=== PATIENT | female | born 1945 | race Caucasian/White ===

== ENCOUNTER 2017-06-15 00:01 | Outpatient (POV) | END 2017-06-15 17:00 | LOC: OUTPT 00:01 | PROVIDERS: ATTEND Otolaryngology | DX: H91.90 Unspecified hearing loss, unspecified ear (principal) ==

== ENCOUNTER 2019-07-05 11:48 | Observation (INO) ==
[2019-07-05] MEDS ORDERED: PROTONIX PO STA (12:16)
--- NOTE | 2019-07-05 12:23 | ED.PDOC ---
General ED Provider: Dr. ILYA SHANNON MD Chief Complaint: Chest Pain Stated Complaint: mild anterior chest pain pressure this morning for one hour, gone now, nonrad, no hx CT, +hx gerd, last stress test 2 years ago, hx htn, pt took aspirin Time Seen by Physician: 12:20 Mode of Arrival: Wheelchair Information Source: Patient Primary Care Provider: CHRISTIE VAZQUEZ Nursing and Triage Documentation Reviewed and Agree: Yes Does patient meet sepsis criteria?: No System Inflammatory Response Syndrome: Not Applicable Sepsis Protocol: For patient's 13 years and over: Temp is 96.8 and below OR 101 and greater Pulse >90 BPM Resp >20/minute Acutely Altered Mental Status Are patient's symptoms suggestive of a new infection, such as: -Pneumonia -Skin, Soft Tissue -Endocarditis -UTI -Bone, Joint Infection -Implantable Device -Acute Abdominal Infection -Wound Infection -Meningitis -Blood Stream Catheter Infection -Unknown Cardiovascular Complaint Exam Chest Pain Complaint/Exam Duration: one hour Symptoms Are: Resolved Timing: Constant Initial Severity: Mild Current Severity: None Location: Reports Midsternal Pain Radiates: Reports None Character: Reports Pressure Aggravating: Reports None AMI/ACS Risk Factors: Reports Hypertension Review of Systems Review Of Systems Constitutional: Denies Fever Eyes: Denies Vision change Ears, Nose, Mouth, Throat: Denies Throat pain Respiratory: Denies Cough Cardiac: Reports Chest pain GI: Denies Abdominal pain Musculoskeletal: Denies Back pain Skin: Reports No symptoms Neurological: Reports No symptoms All Other Systems: Other [facility] Medical History (Updated 07/05/19 @ 14:10 by RINA RUSH RN) Glaucoma History of surgical procedure on eye proper using laser Hypercholesteremia (Acute) Hypertension Family History (Updated 07/05/19 @ 14:11 by RINA RUSH RN) FATHER Myocardial infarct Social History (Updated 07/05/19 @ 14:10 by RINA RUSH RN) Smoking and tobacco status: Never smoker Alcohol intake: never Physical Exam Physical Exam Appearance: Reports Well-appearing Ill-appearing: None Pain Distress: None Eyes: Reports EOMI ENT: Reports Oropharynx normal Neck: Supple Respiratory: Reports Airway patent, Breath sounds clear and Breath sounds equal Cardiovascular: Reports RRR GI/: Reports Soft and Nontender Musculoskeletal: Reports No edema Skin: Reports Warm and Dry Neurological: Reports Sensation intact Psychiatric: Reports Affect appropriate Interpretation Radiology Interpretation Radiology Interpretation By: Radiologist Radiology Results: No acute changes Exam Interpreted: CXR EKG Interpretation Time of EKG #1: 13:22 Rate: Normal Rhythm: Sinus Interpretation: no stemi Re-Evaluation Re-Evaluation Time of Re-Evaluation: 13:23 Status: Improved Vital Signs Stable: Yes Appearance: NAD Lungs: Clear Skin: Warm and Dry Neuro: Alert and Oriented X3 CV: RRR Additional Comments: disposition and admit d/w Taylor, when the family member/employee asked to admit to Dr Caldwell, d/w Dr Caldwell in the ED Critical Care Note Critical Care Note Total Time (mins): 0 Course Course Hematology/Chemistry: 07/05/19 12:32 07/05/19 12:32 Orders, Labs, Meds: Lab Review 07/05/19 07/05/19 07/05/19 12:32 12:32 12:32 WBC 5.90 RBC 3.85 L Hgb 11.5 L Hct 34.9 L MCV 90.6 MCH 29.9 MCHC 33.0 RDW Coeff of Yoselyn 12.7 Plt Count 248 Immature Gran % (Auto) 0.2 Neut % (Auto) 44.6 Lymph % (Auto) 36.8 [place] % (Auto) 12.9 H Eos % (Auto) 4.7 Baso % (Auto) 0.8 Immature Gran # (Auto) 0.0 Neut # (Auto) 2.6 Lymph # (Auto) 2.2 [place] # (Auto) 0.8 Eos # (Auto) 0.3 Baso # (Auto) 0.1 Sodium 137.8 Potassium 4.70 Chloride 100.4 Carbon Dioxide 31.1 H Anion Gap 11.00 BUN 15.8 Creatinine 0.91 Estimated GFR (MDRD) 61.00 BUN/Creatinine Ratio 17.36 Glucose 101.4 Calcium 9.55 Total Bilirubin 0.41 AST 32.9 ALT 16.1 Alkaline Phosphatase 82.7 Total Creatine Kinase 98.8 Troponin I < 0.012 Total Protein 7.01 Albumin 4.02 Globulin 2.99 Albumin/Globulin Ratio 1.34 Triglycerides 130.7 Cholesterol 193.9 LDL Cholesterol, Calc 110 VLDL Cholesterol 26 HDL Cholesterol 58.0 Cholesterol/HDL Ratio 3.3 L TSH 2.170 Free T4 07/05/19 12:32 WBC RBC Hgb Hct MCV MCH MCHC RDW Coeff of Yoselyn Plt Count Immature Gran % (Auto) Neut % (Auto) Lymph % (Auto) [place] % (Auto) Eos % (Auto) Baso % (Auto) Immature Gran # (Auto) Neut # (Auto) Lymph # (Auto) [place] # (Auto) Eos # (Auto) Baso # (Auto) Sodium Potassium Chloride Carbon Dioxide Anion Gap BUN Creatinine Estimated GFR (MDRD) BUN/Creatinine Ratio Glucose Calcium Total Bilirubin AST ALT Alkaline Phosphatase Total Creatine Kinase Troponin I Total Protein Albumin Globulin Albumin/Globulin Ratio Triglycerides Cholesterol LDL Cholesterol, Calc VLDL Cholesterol HDL Cholesterol Cholesterol/HDL Ratio TSH Free T4 1.16 Orders Category Date Time Status EKG-(ED ONLY) Stat CARDIO 07/05/19 12:16 Completed CBC W/ AUTO DIFF Stat LAB 07/05/19 12:32 Completed COMPREHENSIVE METABOLIC PANEL Stat LAB 07/05/19 12:32 Completed TROPONIN I Stat LAB 07/05/19 12:32 Completed Pantoprazole Sodium [Protonix] MEDS 07/05/19 12:16 Discontinued 40 mg PO ONCE STA CHEST, 1V AP ONLY Stat RADS 07/05/19 12:19 Completed Medications Generic Name Dose Route Start Last Admin Trade Name Freq PRN Reason Stop Dose Admin Acetaminophen 650 mg 07/05/19 13:25 Tylenol PO Q4H PRN Mild Pain Aspirin 81 mg 07/06/19 08:00 Aspirin Ec PO DAILYWM [facility] Atropine Sulfate 0.5 mg 07/05/19 14:36 Atropine Sulfate Pfs IVP ONCE PRN Symptomatic Bradycardia Cholecalciferol 1,000 unit 07/06/19 09:00 Vitamin D PO EVERY OTHER DAY [facility] Hydroxyzine HCl 25 mg 07/05/19 14:36 Vistaril Inj IM Q4H PRN Nausea/Vomiting/Restlessness Loratadine 10 mg 07/06/19 09:00 Claritin PO DAILY [facility] Losartan Potassium 25 mg 07/06/19 09:00 Cozaar PO EVERY OTHER DAY [facility] Nitroglycerin 0.4 mg 07/05/19 14:36 Nitrostat SL Q5MIN X 3 DOSES PRN Chest Pain Non-Formulary Medication 1 each 07/06/19 09:00 Famotidine-Ca Carb-Mag Hydrox [Tums Dual Action (Famotidine)] PO DAILY [facility] Non-Formulary Medication 1 drop 07/06/19 09:00 Brimonidine-Timolol [Combigan] RIGHTEYE DAILY ANY Pantoprazole Sodium 40 mg 07/05/19 17:00 Protonix PO BIDAC ANY Pravastatin Sodium 40 mg 07/06/19 09:00 Pravachol PO EVERY OTHER DAY ANY Sodium Chloride 1 syr 07/05/19 21:00 Saline Flush IVF Q8HR ANY Discontinued Medications Generic Name Dose Route Start Last Admin Trade Name Freq PRN Reason Stop Dose Admin Pantoprazole Sodium 40 mg 07/05/19 12:16 07/05/19 12:48 Protonix PO 07/05/19 12:17 40 mg ONCE STA Administration Vital Signs: Temp Pulse Resp BP Pulse Ox 07/05/19 11:49 97.8 F 64 20 172/103 H 100 ANGELA Risk Score ANGELA Risk Score: Risk Score Odds of by 30D 0 0.1 (0.1-0.2) 1 0.3 (0.2-0.3) 2 0.4 (0.3-0.5) 3 0.7 (0.6-0.9) 4 1.2 (1.0-1.5) 5 2.2 (1.9-2.6) 6 3.0 (2.5-3.6) 7 4.8 (3.8-6.1) Discharge Plan Discharge Patient Disposition: PLACED OBSERVATION Discharge Problem: Chest pain ED Provider: ILYA SHANNON Condition: Stable Discharge Date/Time: 07/05/19 13:55
[2019-07-05 12:38] LABS: HEMATOCRIT 34.9 % (37.0-47.0)
--- NOTE | 2019-07-05 13:04 | DI ---
EXAM: Chest one view HISTORY: Chest pain COMPARISON: 05/25/2013 TECHNIQUE: Single view of the chest was performed FINDINGS: The lungs are clear. There is no pleural effusion or pneumothorax. The heart is normal i n size. The mediastinal contour is normal. There are no acute abnormalities of the bones. IMPRESSION: No acute cardiopulmonary process.
[2019-07-05] MEDS ORDERED: TYLENOL PO PRN (13:25)
[2019-07-05 14:16] VITALS: BMI 29.4
[2019-07-05] MEDS ORDERED: ATROPINE SULFATE PFS IVP PRN (14:36)
[2019-07-05] MEDS ORDERED: NITROSTAT SL PRN (14:36)
[2019-07-05] MEDS ORDERED: VISTARIL INJ IM PRN (14:36)
[2019-07-05] MEDS: PROTONIX PO SCH (20:50)
[2019-07-06 03:59] LABS: HEMATOCRIT 37.5 % (37.0-47.0)
[2019-07-06] MEDS: PROTONIX PO SCH ×2 (05:43→05:45)
[2019-07-06] MEDS ORDERED: ASPIRIN EC PO SCH (08:00)
--- NOTE | 2019-07-06 08:48 | PCM.PROG ---
Attending Provider: ATTENDING PROVIDER: Dr. RINA CALDWELL This patient is seen with Jemma Win, Nurse Practitioner. DATE OF SERVICE: 07/06/19 SUBJECTIVE: This 73 year old /WHITE F was hospitalized 07/05/19. The patient is resting comfortably in bed. She has been up and about in the room. She is eating good. She denies any chest pain since admission. She reports that she normally as patient of Dr. Portillo. She last saw him at the beginning of June and he changed her acid reflux medication from Aciphex to Pepcid. She initially though the chest pressure maybe related to this however she took a TUMS and her pain was unrelieved. She then chewed a 325mg aspirin and had relief. REVIEW OF SYSTEMS: CONSTITUTIONAL: No night sweats. No fatigue, malaise, lethargy. No fever or chills. HEENT: Eyes: No visual changes. No eye pain. No eye discharge. ENT: No runny nose. No epistaxis. No sinus pain. No odynophagia. No congestion. RESPIRATORY: No cough, no congestion. No hemoptysis. No shortness of breath. CARDIOVASCULAR: No angina symptoms. No CHF symptoms. No atypical chest pain for CAD. No palpitations. No orthopnea.. GASTROINTESTINAL: No abdominal pain. No nausea or vomiting. No diarrhea or constipation. No hematemesis. No hematochezia. GENITOURINARY: No urgency. No frequency. No dysuria. No hematuria. No obstructive symptoms. No discharge. No pain. No significant abnormal bleeding. MUSCULOSKELETAL: No musculoskeletal pain; no joint swelling. NEUROLOGICAL: Awake, alert, oriented to time, place and person. No headache. No neck pain. No syncope. No seizures. No dizziness. PSYCHIATRIC: Not anxious. No depression. No suicidal thoughts. No homicidal thoughts. SKIN: No rash. No lesions. No wounds. ENDOCRINE: No unexplained weight loss. No weight gain. HEMATOLOGIC/LYMPHATIC: No anemia. No purpura. No petechiae. No prolonged or excessive bleeding. No palpable lymph nodes. PHYSICAL EXAMINATION: GENERAL: The patient is awake, alert and oriented, sitting in bed in no distress. VITAL SIGNS: Temperature 97.7 F, Pulse 62, Respiratory Rate 18, BP 159/78, Pulse Ox 99% HEENT: Head normocephalic, atraumatic. Eyes: Extraocular muscles are intact. Pupils are equal, round and reactive to light and accommodation. Ears: No lesi ons. Nose appeared normal. Throat: No exudate or erythema. NECK: Supple. No JVD, no carotid bruit. No lymphadenopathy or thyromegaly. LUNGS: Diminished breath sounds. Clear to auscultation. Percussion note normal. Chest symmetrical. HEART: S1, S2, no S3. No murmurs. No cyanosis or clubbing. No ascites. Pulses: Dorsalis pedis and posterior tibial pulses +1 to +2 both sides. ABDOMEN: Soft. Non-tender. Bowel sounds active. No CVA tenderness. No mass felt. EXTREMITIES: No edema. Full range of motion of all extremities, equal. NEUROLOGIC: No focal deficit. Cranial nerves II through XII are grossly intact. No headache, no double vision or headache. SKIN: Not dry. Intact. Turgor-normal. LYMPHATIC: No palpable lymph nodes/no lymphedema. MUSCULOSKELETAL: Normal joints with no swelling. Muscle tone is normal. LAB REVIEW: 07/06/19 03:44 07/06/19 03:44 07/06/19 03:44: Sodium 141.1, Potassium 3.96, Chloride 103.9, Carbon Dioxide 29.7, Anion Gap 11.46, BUN 14.7, Creatinine 0.91, Estimated GFR (MDRD) 61.00, BUN/Creatinine Ratio 16.15, Glucose 99.7, Calcium 9.49, Total Bilirubin 0.66, AST 32.2, ALT 17.7, Alkaline Phosphatase 78.4, Total Protein 7.36, Albumin 4.17, Globulin 3.19, Albumin/Globulin Ratio 1.30 07/06/19 03:44: WBC 6.85, RBC 4.10 L, Hgb 12.4, Hct 37.5, MCV 91.5, MCH 30.2, MCHC 33.1, RDW Coeff of Yoselyn 12.9, Plt Count 253, Immature Gran % (Auto) 0.1, Neut % (Auto) 45.8, Lymph % (Auto) 35.0, [place] % (Auto) 14.3 H, Eos % (Auto) 3.9, Baso % (Auto) 0.9, Immature Gran # (Auto) 0.0, Neut # (Auto) 3.1, Lymph # (Auto) 2.4, [place] # (Auto) 1.0, Eos # (Auto) 0.3, Baso # (Auto) 0.1 07/06/19 03:44: Troponin I < 0.012 07/05/19 21:00: Urine Color Yellow, Urine Clarity Clear, Urine pH 7.0, Ur Specific [place] 1.015, Urine Protein Negative, Urine Glucose (UA) Negative, Urine Ketones Negative, Urine Blood Negative, Urine Nitrite Negative, Urine Bilirubin Negative, Urine Urobilinogen 0.2, Ur Leukocyte Esterase Negative 07/05/19 20:37: Total Creatine Kinase 85.5, Troponin I < 0.012 07/05/19 12:32: Free T4 1.16 07/05/19 12:32: Total Creatine Kinase 98.8, Triglycerides 130.7, Cholesterol 193.9, LDL Cholesterol, Calc 110, VLDL Cholesterol 26, HDL Cholesterol 58.0, Cholesterol/HDL Ratio 3.3 L, TSH 2.170 07/05/19 12:32: Sodium 137.8, Potassium 4.70, Chloride 100.4, Carbon Dioxide 31.1 H, Anion Gap 11.00, BUN 15.8, Creatinine 0.91, Estimated GFR (MDRD) 61.00, BUN/Creatinine Ratio 17.36, Glucose 101.4, Calcium 9.55, Total Bilirubin 0.41, AST 32.9, ALT 16.1, Alkaline Phosphatase 82.7, Troponin I < 0.012, Total Protein 7.01, Albumin 4.02, Globulin 2.99, Albumin/Globulin Ratio 1.34 07/05/19 12:32: WBC 5.90, RBC 3.85 L, Hgb 11.5 L, Hct 34.9 L, MCV 90.6, MCH 29.9, MCHC 33.0, RDW Coeff of Yoselyn 12.7, Plt Count 248, Immature Gran % (Auto) 0.2, Neut % (Auto) 44.6, Lymph % (Auto) 36.8, [place] % (Auto) 12.9 H, Eos % (Auto) 4.7, Baso % (Auto) 0.8, Immature Gran # (Auto) 0.0, Neut # (Auto) 2.6, Lymph # (Auto) 2.2, [place] # (Auto) 0.8, Eos # (Auto) 0.3, Baso # (Auto) 0.1 ASSESSMENT: Please see below. 1. Atypical chest pain PLAN: 1.Echo and a stress echo 2.Continue Routine Telemetry 3.Continue home medications. Plan and coordination of the patient's care discussed in the presence of Multiple Spindle Router Operator and nurse. SCRIBED BY: Susana RICCIist scribed while in presence of service performed by Dr. Caldwell/Jemma Win APRN on 07/06/19 (6000)
[2019-07-06] MEDS ORDERED: CLARITIN PO SCH (09:00)
[2019-07-06] MEDS ORDERED: PRAVACHOL PO SCH (09:00)
[2019-07-06] MEDS ORDERED: NON-FORMULARY MEDICATION (Brimonidine-Timolol [Combigan] 1 DROP) RIGHTEYE SCH (09:00)
[2019-07-06] MEDS ORDERED: NON-FORMULARY MEDICATION (Pravastatin [Pravachol] 40 MG) PO SCH (09:00)
[2019-07-06] MEDS ORDERED: CETIRIZINE 10 MG PO SCH (09:00)
[2019-07-06] MEDS ORDERED: VITAMIN D PO SCH (09:00)
[2019-07-06] MEDS ORDERED: NON-FORMULARY MEDICATION (Cholecalciferol (Vitamin D3) [Vitamin D3] 1,000 UNIT) PO SCH (09:00)
[2019-07-06] MEDS ORDERED: LOSARTAN 25 MG PO SCH (09:00)
[2019-07-06] MEDS ORDERED: COZAAR PO SCH (09:00)
[2019-07-06 09:54] VITALS: BP 133/85; TEMP 98.1
--- NOTE | 2019-07-06 14:06 | DS ---
DATE OF SERVICE: 07/06/19 FINAL DIAGNOSIS: 1. CHEST PAIN, ATYPICAL FOR CORONARY INSUFFICIENCY. 2. GASTROESOPHAGEAL REFLUX DISEASE LIKELY ESOPHAGEAL SPASM. 3. DYSLIPIDEMIA. 4. HYPERTENSION. 5. ANEMIA. 6. HISTORY OF GLAUCOMA. DISCHARGE INSTRUCTIONS: Advised to continue the same medications as before. The patient has some Acifex left at home. Advised to restart one q.a.m. along with 20 mg Pepcid at 4 or 5 o'clock before supper. HOSPITAL COURSE: 73-year-old white female hospitalized with chest tightness in the center of the chest around lower sternal area of a couple hours duration before she came to the emergency room. The patient's condition improved. She was given Protonix 40 mg twice a day while she was in the hospital. The patient's EKG showed sinus rhythm, left bundle branch block type of pattern which was unchanged times three. Cardiac markers were negative. Stress test METS level 5 with no evidence of ischemia by ST-T wave. The patient's blood pressure response was appropriate. Resting and postexercise echo was normal indicating normal LV contractility. The patient's lipid profile is acceptable. The patient was advised to continue the same medications as before. According to her she had done good on Aciphex but because of the side effects on PPI, she was recently switched to Pepcid. She was advised to continue Aciphex and she has it at home for the timebeing until she is seen by Dr. Lundberg. CONDITION AT TIME DISCHARGE: Stable. TIME SPENT: More than 60 minutes. MTDD
--- NOTE | 2019-07-06 14:08 | PN ---
CODING FOR BILLING 07/05/19 ADMISSION DAY LEVEL 5 07/06/19 INTERMEDIATE 07/07/19 DISCHARGE MTDD
--- NOTE | 2019-07-09 11:05 | STRESSECHO ---
Date of Test: 07/06/19 Ordering Physician: DR. RINA CARRANZA Occupation: RETIRED Reason for Exam: CHEST PAIN, HYPERTENSION Smoking History: NONE Height: 62" Weight: 164 LBS Current Medications: LOSARTAN, VITAMIN D3, PRAVACHOL, FLONASE Resting EKG: SINUS RHYTHM/ INCOMPLETE RIGHT BUNDLE BRANCH BLOCK Target Heart Rate: 124/147 S-T SEGMENT STAGE MPH/GRADE HEART RATE BPM BLOOD PRESSURE MMHG RHYTHM +/- ELEVATION DEPRESSION SYMPTOMS AT REST 80 BPM 142/80 MMHG SR X NONE 1 1.7/10% 147 BPM 168/92 MMHG SR X NONE 2 2.5/12% 3 3.4/14% 4 4.2/16% 5 5.0/18% Immediately After 160 BPM 178/80 MMHG SR X NONE Minutes Post Exercise 5:00 80 BPM 132/80 MMHG SR X NONE Minutes Post Exercise DURATION OF EXERCISE: 3:36 MAXIMUM HEART RATE REACHED: 160 BPM REASON FOR TERMINATION: FATIGUE 99% OXYGEN SATURATION WITH EXERCISE ON ROOM AIR METS 6.0 INTERPRETATION: 1. NO EVIDENCE OF ISCHEMIA BY ST-T WAVE 2. NO CHEST PAIN OR CHEST DISCOMFORT 3. NO ARRHYTHMIAS 4. BLOOD PRESSURE RESPONSE: BORDERLINE HYPERTENSION WITH EXERCISE NORMAL LEFT VENTRICULAR CONTRACTILITY--RESTING AND POST EXERCISE MTDD
--- NOTE | 2019-07-09 11:08 | ECHOSTRESS ---
Date of Exam: 07/06/19 Ordering Physician: DR. RINA CARRANZA/CHRISTIE VAZQUEZ Reason for Echo: CHEST PAIN, HYPERTENSION, STRESS TEST M-Mode Normal Adult Results LV Dimensions Normal Adult Results AoV Opening excursions >1.6 LVEDD-base- 3.5-5.8 Ao root dimensions 2.0-3.7 LVESD-base- 3.1-4.6 L. Atrium dimensions 1.9-3.8 Post. Wall thickness 0.8-1.1 IV septum (thickness) 0.7-1.2 Post. Wall excursion 0.72-1.3 Septal motion Systolic motion R. Ventricular cavity 1.5-2.0 LVEF 60% Paradoxical septal wall motion 2-D: NORMAL LEFT VENTRICULAR CONTRACTILITY--RESTING AND POST EXERCISE M-MODE: MV: AV: TV: PV: CHAMBER SIZE: WALL MOTION: NORMAL LEFT VENTRICULAR CONTRACTILITY--RESTING AND POST EXERCISE PERICARDIUM: INTERPRETATION: 1. NORMAL LEFT VENTRICULAR CONTRACTILITY--RESTING AND POST EXERCISE MTDD
--- NOTE | 2019-07-09 11:11 | ECHO2D ---
Date of Exam: 07/06/19 Ordering Physician: DR. RINA CARRANZA/ CHRISTIE VAZQUEZ Room #: 119 Reason for Echo: CHEST PAIN M-Mode Normal Adult Results LV Dimensions Normal Adult Results AoV Opening excursions >1.6 >1.6 LVEDD-base- 3.5-5.8 4.2 Ao root dimensions 2.0-3.7 2.9 LVESD-base- 3.1-4.6 L. Atrium dimensions 1.9-3.8 3.4 Post. Wall thickness 0.8-1.1 1.0 IV septum (thickness) 0.7-1.2 1.1 Post. Wall excursion 0.72-1.3 NORMAL Septal motion NORMAL Systolic motion R. Ventricular cavity 1.5-2.0 NORMAL LVEF 60% 62% Paradoxical septal wall motion NORMAL 2-D : 2-D M Mode Echocardiogram was performed using apical four chamber and left parasternal long and short axis views. Mitral, tricuspid and aortic valves appear to be normal. Contractility of the left ventricle seems to be normal, so is the cavity size. Left atrial cavity size and aortic root appear to be normal. There is no pericardial effusion. There is no thrombus noted in the left ventricle or left atrial cavity. No mitral valve prolapse noted. M-MODE: MV: NORMAL AV: NORMAL TV: NORMAL PV: CHAMBER SIZE: NORMAL WALL MOTION: NORMAL PERICARDIUM: NORMAL INTERPRETATION: 1. NORMAL 2 "D" "M" MODE ECHO MTDD
--- NOTE | 2019-07-10 12:55 | HP ---
DATE OF SERVICE: 07/05/19 HISTORY OF PRESENT ILLNESS: Gabriella was brought to the emergency room with chest pain. The patient has substernal middle of the chest tightness for the past probably couple of hours. The patient took a chewable aspirin and the pain got better. The patient's pain is nonexertional. There was no shortness of breath associated with it. The patient's daughter is present in the room. PAST MEDICAL HISTORY: Gastroesophageal reflux disease - the patient use to be Aciphex, which has been changed to Pepcid recently. REVIEW OF SYSTEMS: CONSTITUTIONAL: Mild fatigue. No night sweats. No malaise, lethargy. No fever or chills. HEENT: Eyes: No visual changes. No eye pain. No eye discharge. ENT: No runny nose. No epistaxis. No sinus pain. No sore throat. No odynophagia. No ear pain. No congestion. RESPIRATORY: No cough, no congestion. No hemoptysis. No shortness of breath. CARDIOVASCULAR: Chest tightness as described unrelated to exertion. No radiation of pain. No CHF symptoms. No atypical chest pain for CAD. No palpitations. No PND. No orthopnea. GASTROINTESTINAL: No abdominal pain. No nausea or vomiting. No diarrhea or constipation. No hematemesis. No hematochezia. GENITOURINARY: No urgency. No frequency. No dysuria. No hematuria. No obstructive symptoms. No discharge. No pain. No significant abnormal bleeding. MUSCULOSKELETAL: No musculoskeletal pain. No joint swelling. No arthritis. NEUROLOGICAL: No headache. No neck pain. No syncope. No seizures. No dizziness. PSYCHIATRIC: Not anxious. No depression. No suicidal thoughts. No homicidal thoughts. SKIN: No rash. No lesions. No wounds. ENDOCRINE: No unexplained weight loss. No weight gain. HEMATOLOGIC/LYMPHATIC: No anemia. No purpura. No petechiae. No prolonged or excessive bleeding. No palpable lymph nodes. PERSONAL/FAMILY/SOCIAL HISTORY: FAMILY HISTORY: Father had problem with heart. PERSONAL: Nonsmoker. No alcohol abuse. Never had cardiac catheterization or any other serious medical illness. MEDICATIONS: Pepcid Losartan Zyrtec ALLERGIES: NKDA PHYSICAL EXAMINATION: HEENT: Head normocephalic, atraumatic. Eyes: Extraocular muscles are intact. Pupils are equal, round and reactive to light and accommodation. Ears: No lesions. Nose appeared normal. Throat: No exudate or erythema. NECK: Supple. No JVD, no carotid bruit. No lymphadenopathy or thyromegaly. LUNGS: Clear to auscultation. Percussion note normal. Chest symmetrical. HEART: S1, S2, no S3. No murmur. No cyanosis or clubbing. No ascites. Pulses: Dorsalis pedis and posterior tibial pulses +2 bilaterally. ABDOMEN: Soft. Nontender. Bowel sounds active. No CVA tenderness. No mass felt. EXTREMITIES: No edema. Full range of motion of all extremities, equal. NEUROLOGIC: No focal deficit. Cranial nerves II through XII are grossly intact. No headache, no double vision or headache. SKIN: Not dry. Intact. Turgor - normal. LYMPHATIC: No palpable lymph nodes/no lymphedema. MUSCULOSKELETAL: Normal joints with no swelling. Muscle tone is normal. EKG: Sinus rhythm, incomplete RBBB. Cardiac markers negative. ASSESSMENT: 1. CHEST TIGHTNESS SEEMS TO BE NONCARDIAC WITH A COUPLE OF RISK FACTORS LIKE DYSLIPIDEMIA TREATED WITH PRAVACHOL. 2. HYPERTENSION, BORDERLINE, TREATED WITH LOSARTAN. 3. FAMILY HISTORY OF HEART DISEASE. 4. LIKELY CAUSE OF CHEST TIGHTNESS, REFLUX. RECOMMENDATIONS: 1. Protonix 40 mg b.i.d. 2. Admit the patient to observation. 3. Protonix 40 mg twice a day. 4. Echocardiogram. 5. Stress test. 6. Serial EKGs. 7. Cardiac markers. 8. T4, TSH, lipid profile. CONDITION: Stable. TIME SPENT: More than 70 minutes. MTDD
--- NOTE | 2019-07-12 11:28 | SSS ---
DATE OF SERVICE: 07/06/2019 REASON FOR CONSULTATION/ADMISSION: Chest pain HISTORY OF PRESENT ILLNESS: 73 year old white female hospitalized with GERD, stress, slight anxiety/left anterior chest "pressure" was watching TV (trump speech). Tums had zero effect. Aspirin 325mg helped. From 10/25 to 04/27 pain. REVIEW OF SYSTEMS: CONSTITUTIONAL: No night sweats. No fatigue, malaise, lethargy. No fever or chills. Alert and oriented times 4. HEENT: Eyes: No visual changes. No eye pain. No eye discharge. ENT: No runny nose. No epistaxis. No sinus pain. No sore throat. No odynophagia. No ear pain. No congestion. RESPIRATORY: No cough, no congestion. No hemoptysis. No shortness of breath. CARDIOVASCULAR: No angina symptoms. No CHF symptoms. No atypical chest pain for CAD. No palpitations. No orthopnea. GASTROINTESTINAL: No abdominal pain. No nausea or vomiting. No diarrhea or constipation. No hematemesis. No hematochezia. GENITOURINARY: No dysuria. No hematuria. No obstructive symptoms. No discharge. No pain. No significant abnormal bleeding. MUSCULOSKELETAL: No musculoskeletal pain. No joint swelling. NEUROLOGICAL: Awake, alert, oriented to time, place and person. No headache. No neck pain. No syncope. No seizures. No dizziness. PSYCHIATRIC: Verbalizes worrying a lot, anxious easily. No depression. No suicidal thoughts. No homicidal thoughts. SKIN: No rash. No lesions. No wounds. ENDOCRINE: No unexplained weight loss. No weight gain. HEMATOLOGIC/LYMPHATIC: No anemia. No purpura. No petechiae. No prolonged or excessive bleeding. No palpable lymph nodes. PAST HISTORY: Hypertension Hypercholesteremia Recently Dr. Cyr took off Acifax and started Pepcid. PERSONAL/FAMILY HISTORY/SOCIAL HISTORY: Stable home environment. PHYSICAL EXAMINATION: GENERAL: The patient is , lying/sitting in bed in no distress. VITAL SIGNS: 161 pounds, 5'2". BMI 29.4. Temperature 97.8, pulse 64, respiratory rate 20 and blood pressure 172/103. HEENT: Head normocephalic, atraumatic. Eyes: Extraocular muscles are intact. Pupils are equal, round and reactive to light and accommodation. Ears: No lesions. Nose appeared normal. Throat: No exudate or erythema. NECK: Supple. No JVD, no carotid bruit. No lymphadenopathy or thyromegaly. LUNGS: Clear to auscultation. Percussion note normal. Chest symmetrical. HEART: S1, S2, no S3. No murmurs. No cyanosis or clubbing. No ascites. Pulses: Dorsalis pedis and posterior tibial pulses +1 to +2 bilaterally. ABDOMEN: Soft. Nontender. Bowel sounds active. No CVA tenderness. No mass felt. EXTREMITIES: No edema. Full range of motion of all extremities, equal. NEUROLOGIC: No focal deficit. Cranial nerves II through XII are grossly intact. No headache, no double vision or headache. SKIN: Not dry. Intact. Turgor - normal. LYMPHATIC: No palpable lymph nodes/no lymphedema. MUSCULOSKELETAL: Normal joints with no swelling. Muscle tone is normal. Old/present records reviewed: Yes Office records reviewed: Yes EDUCATION CARRIED OUT: CAD ALLERGIES: No known allergies MEDICATIONS: Pepcid 20mg TUMS dual action Pravachol Losartan Zyrtec Vitamin D Combigan eye drops LABS/EKG'S/X-RAY/ECHO/ABG: Chest x-ray within normal limits. WBC 5.90, hgb 11.5, hct 34.9, plt count 248. Sodium 137, potassium 4.70, chloride 100.4, bicarb 31.1, BUN 15.8, creatinine 0.91 and glucose 101.4. Troponin # < 0.012, #2 <0.012, #3 <0.012. Total creatinine kinase #1 98.8, #2 85.5. TSH 2.170, T4 1.16. Stress echo and 2D echo done 07/06/2019. Triglycerides 130.7, Cholesterol 193.9, LDL 110, VLDL 26, HDL 58.0. Cholesterol/HDL Ratio 3.3. PROGRESS NOTES: See EMR. DIAGNOSES: 1. Chest pain/GERD 2. Dyslipidemia RECOMMENDATIONS/PLAN: 1. Serial EKGS 2. Cardiac markers 3. Telemetry 4. Stress echo 5. Echo TIME SPENT: More than 70 minutes. [facility]
== END 2019-07-06 12:31 | disposition home or self-care (01) ==
LOC: MEDSURG B 11:48 → ED 11:48 → MEDSURG B 13:55
PROVIDERS: ADMIT Internal Medicine; ATTEND Internal Medicine